=== PATIENT | female | born 1970 ===

== ENCOUNTER 2018-10-12 11:44 | Inpatient (IN) | payer SELFPAY ==
[2018-10-12 11:54] VITALS: BMI 40.0
--- NOTE | 2018-10-12 12:12 | ED PDOC ---
HPI: Chest Pain Time Seen by Provider: 10/12/18 11:59 Chief Complaint (Provider): chest pain History Per: [employer] (madai #[id number]) History/Exam Limitations: no limitations Onset/Duration Of Symptoms: Hrs (8), Sudden Onset Current Symptoms Are (Timing): Still Present Quality: Sharp Associated Symptoms: Nausea, Dyspnea Modifying Factors: None Exacerbating Factors: None Additional Complaint(s): 48yo female presents c/o chest pain central radiating to jaw associated with mild numbness to jaw, headache and one episode vomiting this morning. Denies weakness, change in speech or vision. Had one prior episode of similar pain about 8 years ago where she was told she had a panic attack but denies anxiety today. Past Medical History Vital Signs: Last Vital Signs Temp 98.4 F 10/12/18 11:53 Pulse 82 10/12/18 11:53 Resp 20 10/12/18 11:53 BP 133/79 10/12/18 11:53 Pulse Ox 98 10/12/18 11:53 - Medical History PMH: Diabetes (?), HTN (?) - Family History Family History: States: Unknown Family Hx - Social History Current smoker - smoking cessation education provided: No - Home Medications Home Medications: Ambulatory Orders Medication Instructions Recorded Turmeric Root Extract [Turmeric] 1 cap PO DAILY 10/12/18 - Allergies Allergies/Adverse Reactions: Allergies Allergy/AdvReac Type Severity Reaction Status Date / Time No Known Allergies Allergy Verified 10/12/18 12:09 - Laboratory Results Result Diagrams: 10/12/18 12:55 10/12/18 12:55 - ECG ECG: Positive for: Interpreted By Me ECG Rhythm: Positive for: Sinus Rhythm, ST/T Changes. Negative for: Normal ST Segment Interpretation Of Abn EKG: ST changes lat Rate: 78 O2 Sat by Pulse Oximetry: 98 Pulse Ox Interpretation: Normal - Critical Care Total Time (In Min): 40 Medical Decision Making Medical Decision Making: EKG reviewed with +lateral ST changed labs reviewed and troponin elevated 3.[address] Ibarra it applications analyst cardio rec starting heparin, ASA ordered and admitted to hospitalist/ clinic service for further testing. repeat EKG showed no progression of ST changes and patient pain free on re-eval Disposition - Clinical Impression Clinical Impression: NSTEMI (non-ST elevated myocardial infarction) - Patient ED Disposition Is Patient to be Admitted: Yes Counseled Patient/Family Regarding: Studies Performed, Diagnosis - Disposition Disposition Time: 13:30 Condition: FAIR - Pt Status Changed To: Hospital Disposition Of: Inpatient - Admit Certification Admit to Inpatient:: After my assessment, the patient will require hospitalization for at least two midnights. This is because of the severity of symptoms shown, intensity of services needed, and/or the medical risk in this patient being treated as an outpatient.
[2018-10-12 13:00] LABS: BASO # 0.1 K/uL (0.0-0.2); BASO % 0.6 % (0.0-2.0); EOS # 0.1 K/uL (0.0-0.7); HEMOGLOBIN 13.8 g/dL (12.0-16.0); LYMPH # 2.5 K/uL (1.0-4.3); LYMPH % 22.7 % (20.0-40.0); MEAN CELL VOLUME 83.8 fl (81.0-99.0); MEAN CORPUSCULAR HGB CONC 33.4 g/dL (33.0-37.0); MONO # 0.5 K/uL (0.0-0.8); MONO % 4.7 % (0.0-10.0); NEUT # 7.7 K/uL (1.8-7.0); NRBC % 0.4 % (0.0-0.0); RBC 4.91 Mil/uL (3.80-5.20); RED CELL DISTRIBUTION WIDTH 14.7 % (11.5-14.5); WHITE BLOOD COUNT 10.9 K/uL (4.8-10.8)
[2018-10-12 13:07] LABS: SQUAMOUS EPITHIAL 2 /hpf (0-5); URINE BACTERIA MANY (<OCC); URINE BILIRUBIN NEGATIVE (NEGATIVE); URINE BLOOD SMALL (NEGATIVE); URINE CLARITY SLIGHTY-CLOUDY (Clear); URINE COLOR STRAW (YELLOW); URINE GLUCOSE (UA) NEG (NEGATIVE); URINE LEUKOCYTE ESTERASE NEG Leu/uL (Negative); URINE PROTEIN NEGATIVE (NEGATIVE); URINE UROBILINOGEN 0.2-1.0 mg/dL (0.2-1.0)
[2018-10-12 13:09] LABS: INR 1.1; PROTHROMBIN TIME 12.3 Seconds (9.8-13.1)
[2018-10-12 13:12] LABS: PARTIAL THROMBOPLASTIN TIME 31.6 Seconds (25.6-37.1)
[2018-10-12 13:25] LABS: ALB/GLOB RATIO 1.3 (1.0-2.1); ALBUMIN 4.1 g/dL (3.5-5.0); ALT/SGPT 49 U/L (9-52); AST/SGOT 63 U/L (14-36); BLOOD UREA NITROGEN 9 mg/dl (7-17); CALCIUM 9.1 mg/dL (8.4-10.2); GFR NON-AFRICAN AMERICAN > 60
[2018-10-12 13:51] LABS: B-TYPE NATRIURETIC PEPTIDE 121 pg/ml (0-450)
[2018-10-12] MEDS ORDERED: Heparin 25,000units in D5W 25,000 UNITS/250 ML BAG IV SCH (14:15)
[2018-10-12] MEDS ORDERED: Nitroglycerin 2% 15 INCH/30 GM TUBE TOP STA (14:44)
--- NOTE | 2018-10-12 14:47 | CP.PCM.HP ---
<Roxanne Mata - Last Filed: 10/12/18 15:19> History of Present Illness - History of Present Illness History of Present Illness: 48-year-old female with PMH of prediabetes (HgA1C 6.0 09/24/18) presents to ED with crushing left-sided chest pain associated with numbness radiating to her jaw since 3am (8.5 hours prior to presentation). Pain is associated with headache, which has since resolved, and is currently aggravated with movement and alleviated with rest. 8 years ago she had a similar episode and was seen in the ED but discharged home with a diagnosis of anxiety/panic attack. She denies any current medical conditions besides increased liver enzymes (AST/ALT 63/49 today) and prediabetes (HgA1C 6.0 09/24/18) and takes no medications. She is a former smoker of 8 years but quit at age 21 (27 years ago). She is able to walk 8+ blocks without having to stop - if she does stop it is due to knee pain. She denies dyspnea at rest or during exercise, nausea, diaphoresis, change in vis ion, anxiety, syncope, shortness of breath, difficulty breathing, fever, recent illness, new-onset edema and chills. PMD: [facility], Dr. Mcclure -last seen [facility] 07/04/18 Meds: denies OBHx: [facility] 06/23/18 Surgical Hx: C/S + tubal ligation (2002), breast cyst biopsy (1999), pilonidal cyst removal during childhood FHx: M: HTN, DM, pacemaker; F: DM, COPD Social: EtOH social/occasional, denies illicit drugs, former smoker x8 years (quit 27 years ago) Allergies: NKDA Present on Admission - Present on Admission Any Indicators Present on Admission: No History of DVT/PE: No History of Uncontrolled Diabetes: No Review of Systems - Constitutional Constitutional: absent: Excessive Sweating, Fever, Night Sweats, Weakness - EENT Eyes: absent: Change in Vision Nose/Mouth/Throat: As Per HPI, Neck Pain - Cardiovascular Cardiovascular: As Per HPI, Chest Pain. absent: Diaphoresis, Leg Edema, Pedal Edema, Rapid Heart Rate, Slow Heart Rate - Respiratory Respiratory: absent: Dyspnea on Exertion - Gastrointestinal Gastrointestinal: As Per HPI, Vomiting. absent: Abdominal Pain - Genitourinary Genitourinary: absent: Dysuria - Psychiatric Psychiatric: absent: Anxiety Past Patient History - Past Social History Smoking Status: Former Smoker - PSYCHIATRIC Hx Substance Use: No Meds Allergies/Adverse Reactions: Allergies Allergy/AdvReac Type Severity Reaction Status Date / Time No Known Allergies Allergy Verified 10/12/18 12:09 Physical Exam - Head Exam Head Exam: NORMAL INSPECTION - Eye Exam Eye Exam: Normal appearance - ENT Exam ENT Exam: Mucous Membranes Moist - Respiratory Exam Respiratory Exam: Clear to Auscultation Bilateral, NORMAL BREATHING PATTERN. absent: Respiratory Distress - Cardiovascular Exam Cardiovascular Exam: REGULAR RHYTHM - GI/Abdominal Exam GI & Abdominal Exam: Soft. absent: Tenderness - Extremities Exam Extremities exam: Positive for: normal inspection. Negative for: calf ten derness, pedal edema, tenderness - Neurological Exam Neurological exam: Alert, Normal Gait, Oriented x3 - Psychiatric Exam Psychiatric exam: Normal Affect, Normal Mood - Skin Skin Exam: Dry, Intact, Normal Color, Warm Results - Vital Signs Recent Vital Signs: Last Vital Signs Temp 98 F 10/12/18 13:34 Pulse 77 10/12/18 13:34 Resp 18 10/12/18 13:34 BP 139/72 10/12/18 13:34 Pulse Ox 99 10/12/18 13:34 - Labs Result Diagrams: 10/12/18 12:55 10/12/18 12:55 Labs: Laboratory Results - last 24 hr 10/12/18 10/12/18 10/12/18 12:55 12:55 12:55 WBC 10.9 H RBC 4.91 Hgb 13.8 Hct 41.2 MCV 83.8 D MCH 28.0 MCHC 33.4 RDW 14.7 H Plt Count 282 MPV 8.0 Neut % (Auto) 71.0 Lymph % (Auto) 22.7 [place] % (Auto) 4.7 Eos % (Auto) 1.0 Baso % (Auto) 0.6 Neut # (Auto) 7.7 H Lymph # (Auto) 2.5 [place] # (Auto) 0.5 Eos # (Auto) 0.1 Baso # (Auto) 0.1 PT 12.3 INR 1.1 APTT 31.6 Sodium 138 Potassium 4.0 Chloride 98 Carbon Dioxide 26 Anion Gap 18 BUN 9 Creatinine 0.4 L Est GFR ( Amer) > 60 Est GFR (Non-Af Amer) > 60 Random Glucose 110 H Calcium 9.1 Total Bilirubin 0.3 AST 63 H D ALT 49 Alkaline Phosphatase 84 Troponin I 3.3800 H* NT-Pro-B Natriuret Pep 121 Total Protein 7.2 Albumin 4.1 Globulin 3.2 Albumin/Globulin Ratio 1.3 Urine Color Urine Clarity Urine pH Ur Specific [place] Urine Protein Urine Glucose (UA) Urine Ketones Urine Blood Urine Nitrate Urine Bilirubin Urine Urobilinogen Ur Leukocyte Esterase Urine RBC (Auto) Urine Microscopic WBC Ur Squamous Epith Cells Urine Bacteria 10/12/18 12:55 WBC RBC Hgb Hct MCV MCH MCHC RDW Plt Count MPV Neut % (Auto) Lymph % (Auto) [place] % (Auto) Eos % (Auto) Baso % (Auto) Neut # (Auto) Lymph # (Auto) [place] # (Auto) Eos # (Auto) Baso # (Auto) PT INR APTT Sodium Potassium Chloride Carbon Dioxide Anion Gap BUN Creatinine Est GFR ( Amer) Est GFR (Non-Af Amer) Random Glucose Calcium Total Bilirubin AST ALT Alkaline Phosphatase Troponin I NT-Pro-B Natriuret Pep Total Protein Albumin Globulin Albumin/Globulin Ratio Urine Color Straw Urine Clarity Slighty-cloudy Urine pH 7.0 Ur Specific [place] < 1.005 Urine Protein Negative Urine Glucose (UA) Neg Urine Ketones Negative Urine Blood Small Urine Nitrate Negative Urine Bilirubin Negative Urine Urobilinogen 0.2-1.0 Ur Leukocyte Esterase Neg Urine RBC (Auto) 1 Urine Microscopic WBC 1 Ur Squamous Epith Cells 2 Urine Bacteria Many H Assessment & Plan - Assessment and Plan (Free Text) Assessment: 48-year-old female with no pertinent PMH presents to ED with crushing left-sided chest pain associated with numbness radiating to her jaw admitted for NSTEMI. Plan: NSTEMI - Vitally stable - ASA 325 mg PO stat - Heparin 4,000 units // 25,000 units 250 ml @ 10 mls/hr - Lopressor 50mg Q12H - Nitropaste Q6H PRN - O2 2L PRN - Troponin 3.38, trend Q8H - Admit to telemetry - EKG: t wave changes in lateral leads - Follow-up ECHO - Cardiology consulted, recommendations appreciated DVT Prophylaxis - Hepain <Med Almazan D - Last Filed: 10/12/18 15:27> Results - Vital Signs Recent Vital Signs: Last Vital Signs Temp 98 F 10/12/18 13:34 Pulse 78 10/12/18 14:49 Resp 18 10/12/18 14:49 BP 139/72 10/12/18 14:49 Pulse Ox 100 10/12/18 14:49 - Labs Result Diagrams: 10/12/18 12:55 10/12/18 12:55 Labs: Laboratory Results - last 24 hr 10/12/18 10/12/18 10/12/18 12:55 12:55 12:55 WBC 10.9 H RBC 4.91 Hgb 13.8 Hct 41.2 MCV 83.8 D MCH 28.0 MCHC 33.4 RDW 14.7 H Plt Count 282 MPV 8.0 Neut % (Auto) 71.0 Lymph % (Auto) 22.7 [place] % (Auto) 4.7 Eos % (Auto) 1.0 Baso % (Auto) 0.6 Neut # (Auto) 7.7 H Lymph # (Auto) 2.5 [place] # (Auto) 0.5 Eos # (Auto) 0.1 Baso # (Auto) 0.1 PT 12.3 INR 1.1 APTT 31.6 Sodium 138 Potassium 4.0 Chloride 98 Carbon Dioxide 26 Anion Gap 18 BUN 9 Creatinine 0.4 L Est GFR ( Amer) > 60 Est GFR (Non-Af Amer) > 60 Random Glucose 110 H Calcium 9.1 Total Bilirubin 0.3 AST 63 H D ALT 49 Alkaline Phosphatase 84 Troponin I 3.3800 H* NT-Pro-B Natriuret Pep 121 Total Protein 7.2 Albumin 4.1 Globulin 3.2 Albumin/Globulin Ratio 1.3 Urine Color Urine Clarity Urine pH Ur Specific [place] Urine Protein Urine Glucose (UA) Urine Ketones Urine Blood Urine Nitrate Urine Bilirubin Urine Urobilinogen Ur Leukocyte Esterase Urine RBC (Auto) Urine Microscopic WBC Ur Squamous Epith Cells Urine Bacteria 10/12/18 12:55 WBC RBC Hgb Hct MCV MCH MCHC RDW Plt Count MPV Neut % (Auto) Lymph % (Auto) [place] % (Auto) Eos % (Auto) Baso % (Auto) Neut # (Auto) Lymph # (Auto) [place] # (Auto) Eos # (Auto) Baso # (Auto) PT INR APTT Sodium Potassium Chloride Carbon Dioxide Anion Gap BUN Creatinine Est GFR ( Amer) Est GFR (Non-Af Amer) Random Glucose Calcium Total Bilirubin AST ALT Alkaline Phosphatase Troponin I NT-Pro-B Natriuret Pep Total Protein Albumin Globulin Albumin/Globulin Ratio Urine Color Straw Urine Clarity Slighty-cloudy Urine pH 7.0 Ur Specific [place] < 1.005 Urine Protein Negative Urine Glucose (UA) Neg Urine Ketones Negative Urine Blood Small Urine Nitrate Negative Urine Bilirubin Negative Urine Urobilinogen 0.2-1.0 Ur Leukocyte Esterase Neg Urine RBC (Auto) 1 Urine Microscopic WBC 1 Ur Squamous Epith Cells 2 Urine Bacteria Many H Attending/Attestation - Attestation I have personally seen and examined this patient.: Yes I have fully participated in the care of the patient.: Yes I have reviewed all pertinent clinical information: Yes Notes (Text): 10/12/18 15:27 Patient seen and examined with resident. Case discussed and agreed with assessm ent and plan of management.
--- NOTE | 2018-10-12 16:13 | RAD ---
Date of service: 10/12/2018 HISTORY: Chest pain. COMPARISON: No prior. FINDINGS: LUNGS: No active pulmonary disease. PLEURA: No significant pleural effusion identified, no pneumothorax apparent. CARDIOVASCULAR: No atherosclerotic calcification present Normal. OSSEOUS STRUCTURES: No significant abnormalities. VISUALIZED UPPER ABDOMEN: Normal. OTHER FINDINGS: None. IMPRESSION: No active disease.
--- NOTE | 2018-10-12 18:41 | CARD ---
APPROVED REPORT Date of service: 10/12/2018 EKG Measurement Heart [id number] <Conclusion> Normal sinus rhythm Cannot rule out Inferior infarct, age undetermined T wave abnormality, consider lateral ischemia Abnormal ECG
--- NOTE | 2018-10-12 19:05 | CARD ---
APPROVED REPORT Date of service: 10/12/2018 EXAM: Two-dimensional and M-mode echocardiogram with Doppler and color Doppler. Other Information Quality : GoodRhythm : NSR INDICATION Non STEMI 2D DIMENSIONS IVSd1.27 (0.7-1.1cm)LVDd4.73 (3.9-5.9cm) LVOT Diameter2.11 (1.8-2.4cm)PWd1.11 (0.7-1.1cm) IVSs1.46 (0.8-1.2cm)LVDs3.21 (2.5-4.0cm) FS (%) 32.0 %PWs1.29 (0.8-1.2cm) M-Mode DIMENSIONS Left Atrium (MM)5.03 (2.5-4.0cm)IVSd1.00 (0.7-1.1cm) Aortic Root2.91 (2.2-3.7cm)LVDd6.09 (4.0-5.6cm) Aortic Cusp Exc.2.03 (1.5-2.0cm)PWd1.12 (0.7-1.1cm) IVSs1.47 cmFS (%) 47 % LVDs3.24 (2.0-3.8cm)PWs1.41 cm Aortic Valve AoV Peak Fzvmbvsx178.6cm/sAoV VTI28.6cmAO Peak GR.9mmHg LVOT Peak Iylbslex228.8cm/sLVOT VTI21.88cmAO Mean GR.5mmHg STEPHANIE (VMAX)1.66ui2GQX (VTI)1.35cm2 Mitral Valve MV E Epffjukj82.7cm/sMV DECEL [id number] A Iribojnx190.5cm/s MV OQN03woO/A ratio0.8MVA (PHT)2.98cm2 TDI Lateral E' Peak V7.33cm/sMedial E' Peak V6.27cm/sE/Lateral E'11.4 E/Medial E'13.3 LEFT VENTRICLE The left ventricle is normal size. There is normal left ventricular wall thickness. The left ventricular systolic function is normal. The estimated ejection fraction is 60-65% No regional wall motion abnormalities noted.. Transmitral Doppler flow pattern is Grade I-abnormal relaxation pattern. No left ventricle thrombus noted on this study. There is no ventricular septal defect visualized. There is no left ventricular aneurysm. There is no mass noted in the left ventricle. RIGHT VENTRICLE The right ventricle is normal size. There is normal right ventricular wall thickness. The right ventricular systolic function is normal. ATRIA The left atrium is mildly dilated. The right atrium size is normal. The interatrial septum is intact with no evidence for an atrial septal defect. AORTIC VALVE The aortic valve is normal in structure. No aortic regurgitation is present. There is no aortic valvular stenosis. There is no aortic valvular vegetation. MITRAL VALVE The mitral valve is normal in structure. There is no evidence of mitral valve prolapse. There is no mitral valve stenosis. There is trace to mild mitral valve regurgitation noted. TRICUSPID VALVE The tricuspid valve is normal in structure. There is no tricuspid valve regurgitation noted. There is no tricuspid valve prolapse or vegetation. There is no tricuspid valve stenosis. PULMONIC VALVE The pulmonary valve is normal in structure. There is no pulmonic valvular regurgitation. There is no pulmonic valvular stenosis. GREAT VESSELS The aortic root is normal in size. The ascending aorta is normal in size. The pulmonary artery is normal. The IVC is normal in size and collapses >50% with inspiration. PERICARDIAL EFFUSION There is no pericardial effusion. There is no pleural effusion. <Conclusion> The estimated ejection fraction is 60-65% Transmitral Doppler flow pattern is Grade I-abnormal relaxation pattern. The left atrium is mildly dilated. There is trace to mild mitral valve regurgitation noted.
--- NOTE | 2018-10-12 22:12 | CP.PCM.CON ---
History of Present Illness - History of Present Illness History of Present Illness: asked to see pt for nstemi 48 y/o with sudden severe left sided and substernal cp x 1 episode yesterday. pain described as heaviness in chest with sob, palp, n and vomit. pain was nonradiating, no LH or dizziness. pain came on while watching tv. Additional complaints of bl bhumi yesterday prior to admission. pt called ems. initial ekg showed biphasic t waves in lateral leads. tele shows sr at 80 bpm with pvcs. Pt states that she has had minor bouts of chest pressure throughout day and is currently having one. she states they are a 2-3/10 and the initial was a 10/10. pt has not alerted physicians and or nurses to the mild cp during day. Review of Systems - Constitutional Constitutional: As Per HPI. absent: Anorexia, Chills, Daytime Sleepiness, Excessive Sweating, Fatigue, Fever, Frequent Falls, Headache, Increased Appetite, Lethargy, Malaise, Night Sweats, Snoring, Sleep Apnea, Weight Gain, Weight Loss, Weakness, Other - EENT Eyes: As Per HPI. absent: Blind Spots, Blurred Vision, Change in Vision, D ecreased Night Vision, Diplopia, Discharge, Dry Eye, Exophthalmos, Floaters, Irritation, Itchy Eyes, Loss of Peripheral Vision, Pain, Photophobia, Requires Corrective Lenses, Sees Flashes, Spots in Vision, Tunnel Vision, Other Visual Disturbances, Loss of Vision, Other Ears: As Per HPI. absent: Decreased Hearing, Ear Discharge, Ear Pain, Tinnitus, Abnormal Hearing, Disequilibrium, Dizziness, Other Nose/Mouth/Throat: As Per HPI. absent: Epistaxis, Nasal Congestion, Nasal Discharge, Nasal Obstruction, Nasal Trauma, Nose Pain, Post Nasal Drip, Sinus Pain, Sinus Pressure, Bleeding Gums, Change in Voice, Dental Pain, Dry Mouth, Dysphagia, Halitosis, Hoarsness, Lip Swelling, Mouth Lesions, Mouth Pain, Odynophagia, Sore Throat, Throat Swelling, Tongue Swelling, Facial Pain, Neck Pain, Neck Mass, Other - Breasts Breasts: As Per HPI. absent: Change in Shape, Mass, Pain, Nipple Discharge, Nipple Inversion, Skin Changes, Swelling, Other - Cardiovascular Cardiovascular: Chest Pain at Rest, Diaphoresis, Dyspnea, Leg Edema, Palpitations. absent: As Per HPI, Acrocyanosis, Chest Pain, Chest Pain with Activity, Claudication, Dyspnea on Exertion, Edema, Irregular Heart Rhythm, Pain Radiating to Arm/Neck/Jaw, Leg Ulcers, Lightheadedness, Orthopnea, Paroxysmal Nocturnal Dyspnea, Pedal Edema, Radiating Pain, Rapid Heart Rate, Slow Heart Rate, Syncope, Other - Respiratory Respiratory: As Per HPI. absent: Cough, Dyspnea, Hemoptysis, Dyspnea on Exertion, Wheezing, Snoring, Stridor, Pain on Inspiration, Chest Congestion, Excessive Mucous Production, Change in Mucous Color, Pain with Coughing, Other - Gastrointestinal Gastrointestinal: As Per HPI, Nausea, Vomiting. absent: Abdominal Pain, Belching, Bloating, Change in Bowel Habits, Change in Stool Character, Coffee Ground Emesis, Constipation, Cramping, Diarrhea, Dyspepsia, Dysphagia, Early Satiety, Excessive Flatus, Fecal Incontinence, Heartburn, Hematemesis, Hematochezia, Loose Stools, Melena, Odynophagia, Temesmus, Other - Genitourinary Genitourinary: As Per HPI. absent: Change in Urinary Stream, Difficulty Urinating, Dysuria, Flank Pain, Hematuria, Pyuria, Nocturia, Urinary Incontin ence, Urinary Frequency, Urinary Hesitance, Urinary Urgency, Voiding Freq/Small Amts, Freq UTI, Hx Renal/Bladder Calculi, Hx /Renal Surgery, Bladder Distension, Other - Reproductive: Female Reproductive:Female: As Per HPI. absent: Amenorrhea, Amenorrhea/ Control, Currently Menstual, Cycle <21 Days, Cycle >35 Days, Cycle Variable, Menses 1-7 Days, Menses >/= 8 Days, Menses Variable, Cycle > 4 Weeks Between, No Menses for 6 Months, Heavy Menses, Light Menses, Normal Menses, Spotting Between Cycles, S/P Hysterectomy, Menopausal, Post Menopausal, Premenarche, Abnormal Vaginal Bleeding, Dysmenorrhea, Dyspareunia, Genital Lesions, Genital Pruritis, Pelvic Pain, Prolapse Symptoms, Sexual Dysfunction, Vaginal Discharge, Vaginal Dryness, Vaginal Odor, Vaginal Pruritis, Other - Menstruation Menstruation: As Per HPI. absent: Amenorrhea, Amenorrhea/ Control, Currently Menstual, Cycle <21 Days, Cycle >35 Days, Cycle Variable, Menses 1-7 Days, Menses >/= 8 Days, Menses Variable, Cycle > 4 Weeks Between, No Menses for 6 Months, Heavy Menses, Light Menses, Normal Menses, Spotting Between Cycles, S/P Hysterectomy, Menopausal, Post Menopausal, Premenarche, Abnormal Vaginal Bleeding, Dysmenorrhea, Other - Musculoskeletal Musculoskeletal: As Per HPI. absent: Abnormal Gait, Arthralgias, Atrophy, Back Pain, Deformity, Joint Swelling, Limited Range of Motion, Loss of Height, Muscle Cramps, Muscle Weakness, Myalgias, Neck Pain, Numbness, Radiating Pain into Limb, Stiffness, Tingling, Other - Integumentary Integumentary: As Per HPI. absent: Acne, Alopecia, Bleeding Lesions, Change in Hair, Change in Nails, Change in Pigmentation, Changing Lesions, Dry Skin, Erythema, Furuncle, Hirsutism, Lesions, New Lesions, Non-Healing Lesions, Photosensitivity, Pruritus, Rash, Skin Pain, Skin Ulcer, Sores, Striae, Swelling, Unusual Bruising, Wounds, Jaundice, Other - Neurological Neurological: As Per HPI. absent: Abnormal Gait, Abnormal Hearing, Abnormal Movements, Abnormal Speech, Behavioral Changes, Burning Sensations, Confusion, Convulsions, Disequilibrium, Dizziness, Numbness, Focal Weakness, Frequent Falls, Headaches, Lack of Coordination, Loss of Vision, Memory Loss, Paresthesias, Radicular Pain, Restless Legs, Sensory Deficit, Syncope, Tingling, Tremor, Vertigo, Weakness, Other Visual Disturbances, Other - Psychiatric Psychiatric: As Per HPI. absent: Abnormal Sleep Pattern, Anhedonia, Anxiety, Auditory Hallucinations, Behavioral Changes, Change in Appetite, Change in Libido, Confusion, Depression, Difficulty Concentrating, Hallucinations, Homicidal Ideation, Hopelessness, Irritability, Memory Loss, Mood Swings, Panic Attacks, Paranoia, Suicidal Ideation, Visual Hallucinations, Tactile Hallucinations, Other - Endocrine Endocrine: As Per HPI. absent: Change in Body Appearance, Change in Libido, Cold Intolorance, Deepening of Voice, Excessive Sweating, Fatigue, Flushing, Heat Intolorance, Increase in Ring/Shoe/Hat Size, Palpitations, Polydipsia, Polyphagia, Polyuria, Other - Hematologic/Lymphatic Hematologic: As Per HPI. absent: Easy Bleeding, Easy Bruising, Lymphadenopathy, Other Past Patient History - Past Medical History & Family History Past Medical History?: Yes - Past Social History Smoking Status: Never Smoked Chewing Tobacco Use: No Cigar Use: No Alcohol: None Drugs: Denies Home Situation {Lives}: With Family Domestic Violence: Negative - CARDIAC Hx Cardiac Disorders: No Hx Hypertension: (?) - PULMONARY Hx Respiratory Disorders: No - NEUROLOGICAL Hx Neurological Disorder: No - HEENT Hx HEENT Problems: No - RENAL Hx Chronic Kidney Disease: No - ENDOCRINE/METABOLIC Hx Endocrine Disorders: No - HEMATOLOGICAL/ONCOLOGICAL Hx Blood Disorders: No - INTEGUMENTARY Hx Dermatological Problems: No - MUSCULOSKELETAL/RHEUMATOLOGICAL Hx Musculoskeletal Disorders: No Hx Falls: No - GASTROINTESTINAL Hx Gastrointestinal Disorders: No - GENITOURINARY/GYNECOLOGICAL Hx Genitourinary Disorders: No - PSYCHIATRIC Hx Psychophysiologic Disorder: No Hx Substance Use: No - SURGICAL HISTORY Hx Surgeries: Yes Hx Section: Yes Hx Tubal Ligation: Yes Other/Comment: cyst removal in left breast and lower back - ANESTHESIA Hx Anesthesia: Yes Hx Anesthesia Reactions: No Hx Malignant Hyperthermia: No Has any member of the family had a problem w/ anesthesia?: No Meds Allergies/Adverse Reactions: Allergies Allergy/AdvReac Type Severity Reaction Status Date / Time No Known Allergies Allergy Verified 10/12/18 12:09 - Medications Medications: Current Medications Aspirin (Aspirin) 325 mg PO DAILY [facility] Atorvastatin Calcium (Lipitor) 80 mg PO HS [facility] Heparin Sodium/Dextrose (Heparin 25,000 Units/250ml In D5w) 25,000 units in 250 mls @ 10 mls/hr IV .Q24H [facility]; Protocol Last Admin: 10/12/18 14:49 Dose: 10 mls/hr Metoprolol Tartrate (Lopressor) 50 mg PO Q8 [facility] Nitroglycerin (Nitro-Bid 2% Oint) 1 ea TOP Q6H [facility] Physical Exam - Constitutional Appears: Non-toxic - Head Exam Head Exam: ATRAUMATIC, NORMAL INSPECTION, NORMOCEPHALIC - Eye Exam Eye Exam: EOMI, Normal appearance, PERRL. absent: Conjunctival injection, Nystagmus, Periorbital swelling, Periorbital tenderness, Scleral icterus Pupil Exam: NORMAL ACCOMODATION, PERRL. absent: Fixed, Irregular, Miosis, Mydriatic, Unequal - ENT Exam ENT Exam: Mucous Membranes Moist, Normal Exam. absent: Mucous Membranes Dry, Normal External Ear Exam, Normal Oropharynx, TM's Normal Bilaterally - Neck Exam Neck exam: Positive for: Normal Inspection. Negative for: Full Rom, Lymphadenopathy, Meningismus, Tenderness, Thyromegaly - Respiratory Exam Respiratory Exam: Clear to Auscultation Bilateral, NORMAL BREATHING PATTERN. absent: Accessory Muscle Use, Chest Wall Tenderness, Decreased Breath Sounds, Prolonged Expiratory Phase, Rales, Rhonchi, Wheezes, Respiratory Distress, Stridor - Cardiovascular Exam Cardiovascular Exam: REGULAR RHYTHM, +S1, +S2, Systolic Murmur. absent: Bradycardia, Tachycardia, Clicks, Diastolic murmur, Gallop, Irregular Rhythm, JVD, RRR, Rubs, +S4 - GI/Abdominal Exam GI & Abdominal Exam: Normal Bowel Sounds, Soft. absent: Bruit, Diminished Bowel Sounds, Distended, Firm, Guarding, Hernia, Hyperactive Bowel Sounds, Hypoactive Bowel Sounds, Mass, Organomegaly, Pulsatile Mass, Rebound, Rigid, Tenderness - Rectal Exam Rectal Exam: Deferred - Extremities Exam Extremities exam: Positive for: normal inspection. Negative for: calf tenderness, full ROM, joint swelling, normal capillary refill, pedal edema, tenderness, pedal pulses present - Back Exam Back exam: NORMAL INSPECTION. absent: CVA tenderness (L), CVA tenderness (R), FULL ROM, muscle spasm, paraspinal tenderness, rash noted, tenderness, vertebral tenderness - Neurological Exam Neurological exam: Alert, CN II-XII Intact, Normal Gait, Oriented x3, Reflexes Normal - Psychiatric Exam Psychiatric exam: Normal Affect, Normal Mood - Skin Skin Exam: Dry, Intact, Normal Color, Warm Results - Vital Signs Recent Vital Signs: Last Vital Signs Temp 98.5 F 10/12/18 20:11 Pulse 72 10/12/18 20:49 Resp 18 10/12/18 20:49 BP 136/75 10/12/18 20:11 Pulse Ox 97 10/12/18 20:11 - Labs Result Diagrams: 10/12/18 12:55 10/12/18 12:55 Labs: Laboratory Results - last 24 hr 10/12/18 10/12/18 10/12/18 12:55 12:55 12:55 WBC 10.9 H RBC 4.91 Hgb 13.8 Hct 41.2 MCV 83.8 D MCH 28.0 MCHC 33.4 RDW 14.7 H Plt Count 282 MPV 8.0 Neut % (Auto) 71.0 Lymph % (Auto) 22.7 [place] % (Auto) 4.7 Eos % (Auto) 1.0 Baso % (Auto) 0.6 Neut # (Auto) 7.7 H Lymph # (Auto) 2.5 [place] # (Auto) 0.5 Eos # (Auto) 0.1 Baso # (Auto) 0.1 PT 12.3 INR 1.1 APTT 31.6 Sodium 138 Potassium 4.0 Chloride 98 Carbon Dioxide 26 Anion Gap 18 BUN 9 Creatinine 0.4 L Est GFR ( Amer) > 60 Est GFR (Non-Af Amer) > 60 Random Glucose 110 H Calcium 9.1 Total Bilirubin 0.3 AST 63 H D ALT 49 Alkaline Phosphatase 84 Troponin I 3.3800 H* NT-Pro-B Natriuret Pep 121 Total Protein 7.2 Albumin 4.1 Globulin 3.2 Albumin/Globulin Ratio 1.3 Urine Color Urine Clarity Urine pH Ur Specific [place] Urine Protein Urine Glucose (UA) Urine Ketones Urine Blood Urine Nitrate Urine Bilirubin Urine Urobilinogen Ur Leukocyte Esterase Urine RBC (Auto) Urine Microscopic WBC Ur Squamous Epith Cells Urine Bacteria 10/12/18 10/12/18 12:55 20:51 WBC RBC Hgb Hct MCV MCH MCHC RDW Plt Count MPV Neut % (Auto) Lymph % (Auto) [place] % (Auto) Eos % (Auto) Baso % (Auto) Neut # (Auto) Lymph # (Auto) [place] # (Auto) Eos # (Auto) Baso # (Auto) PT INR APTT 42.0 H Sodium Potassium Chloride Carbon Dioxide Anion Gap BUN Creatinine Est GFR ( Amer) Est GFR (Non-Af Amer) Random Glucose Calcium Total Bilirubin AST ALT Alkaline Phosphatase Troponin I NT-Pro-B Natriuret Pep Total Protein Albumin Globulin Albumin/Globulin Ratio Urine Color Straw Urine Clarity Slighty-cloudy Urine pH 7.0 Ur Specific [place] < 1.005 Urine Protein Negative Urine Glucose (UA) Neg Urine Ketones Negative Urine Blood Small Urine Nitrate Negative Urine Bilirubin Negative Urine Urobilinogen 0.2-1.0 Ur Leukocyte Esterase Neg Urine RBC (Auto) 1 Urine Microscopic WBC 1 Ur Squamous Epith Cells 2 Urine Bacteria Many H Assessment & Plan (1) NSTEMI (non-ST elevated myocardial infarction) Status: Acute Comment: asa 325 daily 1st dose now ordered. increased metoprolol to q8 hrs hr is 80 on monitor with pvcs. check lytes. continue heparin. sl ntg x 1 now as pt having cp currently. cath tomorrow afternoon (time tbd). npo post breakfast. monitor troponins. repeat ekg. i instructed pt to alert staff with any recurring cp. (2) Dyslipidemia Status: Acute (3) Fam hx-ischem heart disease Status: Acute (4) PVC (premature ventricular contraction) Status: Acute (5) Edema, lower extremity Status: Acute - Assessment and Plan (Free Text) Plan: i discussed cardiac cath with pt and immediate family at length. spent over 25 min explaining procedure and answering their questions. discussed risks benefits alternatives and reasoning for cardiac cath. pt and family are agreeable. 45 min total care time.
[2018-10-12] MEDS: Nitroglycerin 2% Ointment Foilpak UD TOP SCH ×2 (22:51→22:52)
[2018-10-13] MEDS: Nitroglycerin 2% Ointment Foilpak UD TOP SCH ×4 (03:06→21:36)
[2018-10-13 05:55] LABS: BASO % 0.3 % (0.0-2.0); EOS # 0.1 K/uL (0.0-0.7); EOS % 1.3 % (0.0-4.0); HEMOGLOBIN 13.1 g/dL (12.0-16.0); LYMPH # 2.2 K/uL (1.0-4.3); LYMPH % 18.5 % (20.0-40.0); MEAN CELL VOLUME 82.2 fl (81.0-99.0); MEAN CORPUSCULAR HEMOGLOBIN 27.7 pg (27.0-31.0); MEAN CORPUSCULAR HGB CONC 33.6 g/dL (33.0-37.0); MEAN PLATELET VOLUME 8.2 fl (7.2-11.7); MONO # 0.6 K/uL (0.0-0.8); MONO % 5.5 % (0.0-10.0); NEUT # 8.7 K/uL (1.8-7.0); NEUT % 74.4 % (50.0-75.0); NRBC % 0.1 % (0.0-0.0); RBC 4.72 Mil/uL (3.80-5.20); WHITE BLOOD COUNT 11.6 K/uL (4.8-10.8)
[2018-10-13 05:57] LABS: INR 1.1; PROTHROMBIN TIME 12.4 Seconds (9.8-13.1)
[2018-10-13 06:17] LABS: ALB/GLOB RATIO 1.3 (1.0-2.1); ALBUMIN 3.9 g/dL (3.5-5.0); ALT/SGPT 59 U/L (9-52); AST/SGOT 72 U/L (14-36); BLOOD UREA NITROGEN 13 mg/dl (7-17); CALCIUM 8.8 mg/dL (8.4-10.2); GFR NON-AFRICAN AMERICAN > 60
--- NOTE | 2018-10-13 06:42 | CARD ---
APPROVED REPORT Date of service: 10/12/2018 EKG Measurement Heart [id number] <Conclusion> Normal sinus rhythm Cannot rule out Inferior infarct, age undetermined T wave abnormality, consider anterolateral ischemia Abnormal ECG
--- NOTE | 2018-10-13 10:14 | CP.PCM.PN ---
<Roxanne Mata - Last Filed: 10/13/18 10:37> Subjective - Date & Time of Evaluation Date of Evaluation: 10/13/18 Time of Evaluation: 09:55 - Subjective Subjective: 48-year-old female seen bedside on day 1 of admission for STEMI. She complains of headache but denies current chest pain and difficulty breathing. Overnight she had chest pain relieved with nitroglycerin but notes improvement in the pain (no longer exacerbated with movement). Plan for cardiac cath later this afternoon discussed, patient demonstrates verbal understanding. Diet NPO. Objective - Vital Signs/Intake and Output Vital Signs (last 24 hours): Temp Pulse Resp BP Pulse Ox 98.4 F 70 20 106/67 97 10/13/18 08:25 10/13/18 10:05 10/13/18 08:25 10/13/18 10:05 10/13/18 08:25 Intake and Output: 10/13/18 10/13/18 06:59 18:59 Intake Total 0 Balance 0 - Medications Medications: Current Medications Aspirin (Aspirin) 325 mg PO DAILY [facility] Last Admin: 10/13/18 10:05 Dose: 325 mg Atorvastatin Calcium (Lipitor) 80 mg PO HS [facility] Last Admin: 10/12/18 22:36 Dose: 80 mg Heparin Sodium/Dextrose (Heparin 25,000 Units/250ml In D5w) 25,000 units in 250 mls @ 10 mls/hr IV .Q24H [facility]; Protocol Last Titration: 10/13/18 06:35 Dose: 14 mls/hr Metoprolol Tartrate (Lopressor) 50 mg PO Q8@0300,1100,1900 [facility] Last Admin: 10/13/18 10:05 Dose: 50 mg Nitroglycerin (Nitro-Bid 2% Oint) 1 ea TOP Q6H [facility] Last Admin: 10/13/18 10:05 Dose: 1 ea - Labs Labs: 10/13/18 04:10 10/13/18 04:10 PT 12.4 Seconds (9.8-13.1) 10/13/18 04:10 INR 1.1 10/13/18 04:10 APTT 46.0 Seconds (25.6-37.1) H 10/13/18 04:10 - Constitutional Appears: Non-toxic, No Acute Distress - Head Exam Head Exam: NORMAL INSPECTION - Eye Exam Eye Exam: Normal appearance - ENT Exam ENT Exam: Mucous Membranes Moist - Neck Exam Neck Exam: Full ROM - Respiratory Exam Respiratory Exam: NORMAL BREATHING PATTERN - Cardiovascular Exam Cardiovascular Exam: REGULAR RHYTHM, +S1, +S2 - GI/Abdominal Exam GI & Abdominal Exam: Soft. absent: Tenderness - Neurological Exam Neurological Exam: Alert, Awake, Normal Gait, Oriented x3 - Psychiatric Exam Psychiatric exam: Normal Affect, Normal Mood - Skin Skin Exam: Dry, Intact, Normal Color, Warm Assessment and Plan - Assessment and Plan (Free Text) Assessment: 48-year-old female with no pertinent PMH presents to ED with crushing left-sided chest pain associated with numbness radiating to her jaw admitted for NSTEMI. Plan: NSTEMI - Vitally stable - ASA 325 mg PO - Heparin 4,000 units once - Heparin 25,000 units 250 ml @ 10 mls/hr - Lopressor 50mg Q8H - Lipitor 80mg PO HS - Nitropaste Q6H PRN - O2 2L PRN - Troponin x3: 3.38 (12:55 10/12), 9.0 (21:45 10/12), 5.6 (4:10 10/13) - EKG (10/12/18): t wave changes in lateral leads - Follow-up ECHO - As per cardiology (Dr Ibarra 10/12/18): ASA 325 daily 1st dose now ordered. increased metoprolol to q8 hrs hr is 80 on monitor with pvcs. check lytes. continue heparin. sl ntg x 1 now as pt having cp currently. cath tomorrow afternoon (time tbd). npo post breakfast. monitor troponins. repeat ekg. i instructed pt to alert staff with any recurring cp. - Plan for cardiac cath today DVT Prophylaxis - Hepain <Almazan,Med D - Last Filed: 10/13/18 13:12> Objective - Vital Signs/Intake and Output Vital Signs (last 24 hours): Temp Pulse Resp BP Pulse Ox 98.4 F 70 20 106/67 97 10/13/18 08:25 10/13/18 10:05 10/13/18 08:25 10/13/18 10:05 10/13/18 08:25 Intake and Output: 10/13/18 10/13/18 06:59 18:59 Intake Total 0 Balance 0 - Medications Medications: Current Medications Aspirin (Aspirin) 325 mg PO DAILY [facility] Last Admin: 10/13/18 10:05 Dose: 325 mg Atorvastatin Calcium (Lipitor) 80 mg PO HS [facility] Last Admin: 10/12/18 22:36 Dose: 80 mg Heparin Sodium/Dextrose (Heparin 25,000 Units/250ml In D5w) 25,000 units in 250 mls @ 10 mls/hr IV .Q24H [facility]; Protocol Last Titration: 10/13/18 06:35 Dose: 14 mls/hr Metoprolol Tartrate (Lopressor) 50 mg PO Q8@0300,1100,1900 [facility] Last Admin: 10/13/18 10:05 Dose: 50 mg Nitroglycerin (Nitro-Bid 2% Oint) 1 ea TOP Q6H [facility] Last Admin: 10/13/18 10:05 Dose: 1 ea - Labs Labs: 10/13/18 04:10 10/13/18 04:10 PT 12.4 Seconds (9.8-13.1) 10/13/18 04:10 INR 1.1 10/13/18 04:10 APTT 46.0 Seconds (25.6-37.1) H 10/13/18 04:10 Attending/Attestation - Attestation I have personally seen and examined this patient.: Yes I have fully participated in the care of the patient.: Yes I have reviewed all pertinent clinical information, including history, physical exam and plan: Yes Notes (Text): 10/13/18 13:11 Patient seen and examined with resident. Case discussed and agreed with assessment and plan
--- NOTE | 2018-10-13 16:00 | CP.PCM.PN ---
Subjective - Date & Time of Evaluation Date of Evaluation: 10/13/18 Time of Evaluation: 15:58 - Subjective Subjective: cath performed. 80% distal lad (small 1mm caliber) stenosis. no complications of complaints. Objective - Vital Signs/Intake and Output Vital Signs (last 24 hours): Temp Pulse Resp BP Pulse Ox 98.4 F 70 20 106/67 97 10/13/18 08:25 10/13/18 10:05 10/13/18 08:25 10/13/18 10:05 10/13/18 08:25 Intake and Output: 10/13/18 10/13/18 06:59 18:59 Intake Total 0 Balance 0 - Medications Medications: Current Medications Aspirin (Aspirin) 325 mg PO DAILY [facility] Last Admin: 10/13/18 10:05 Dose: 325 mg Atorvastatin Calcium (Lipitor) 80 mg PO HS [facility] Last Admin: 10/12/18 22:36 Dose: 80 mg Heparin Sodium/Dextrose (Heparin 25,000 Units/250ml In D5w) 25,000 units in 250 mls @ 10 mls/hr IV .Q24H [facility]; Protocol Last Titration: 10/13/18 06:35 Dose: 14 mls/hr Metoprolol Tartrate (Lopressor) 50 mg PO Q8@0300,1100,1900 [facility] Last Admin: 10/13/18 10:05 Dose: 50 mg Nitroglycerin (Nitro-Bid 2% Oint) 1 ea TOP Q6H [facility] Last Admin: 10/13/18 10:05 Dose: 1 ea - Labs Labs: 10/13/18 04:10 10/13/18 04:10 PT 12.4 Seconds (9.8-13.1) 10/13/18 04:10 INR 1.1 10/13/18 04:10 APTT 46.0 Seconds (25.6-37.1) H 10/13/18 04:10 - Constitutional Appears: Well - Head Exam Head Exam: ATRAUMATIC, NORMAL INSPECTION, NORMOCEPHALIC - Eye Exam Eye Exam: EOMI, Normal appearance, PERRL Pupil Exam: NORMAL ACCOMODATION, PERRL - ENT Exam ENT Exam: Mucous Membranes Moist, Normal Exam - Neck Exam Neck Exam: Full ROM, Normal Inspection. absent: Lymphadenopathy - Respiratory Exam Respiratory Exam: Clear to Ausculation Bilateral, NORMAL BREATHING PATTERN - Cardiovascular Exam Cardiovascular Exam: REGULAR RHYTHM, +S1, +S2, Murmur - GI/Abdominal Exam GI & Abdominal Exam: Soft, Normal Bowel Sounds. absent: Bruit, Distended, Firm, Guarding, Rigid, Tenderness, Diminished Bowel Sounds, Hernia, Hyperactive Bowel Sounds, Hypoactive Bowel Sounds, Organomegaly, Pulsatile Mass, Rebound, Mass - Extremities Exam Extremities Exam: Full ROM, Normal Capillary Refill, Normal Inspection. absent: Joint Swelling, Pedal Edema - Back Exam Back Exam: NORMAL INSPECTION - Neurological Exam Neurological Exam: Alert, Awake, CN II-XII Intact, Normal Gait, Oriented x3 - Psychiatric Exam Psychiatric exam: Normal Affect, Normal Mood - Skin Skin Exam: Dry, Intact, Normal Color, Warm Assessment and Plan (1) NSTEMI (non-ST elevated myocardial infarction) Status: Acute (2) Dyslipidemia Status: Acute (3) Fam hx-ischem heart disease Status: Acute (4) PVC (premature ventricular contraction) Status: Acute (5) Edema, lower extremity Status: Acute - Assessment and Plan (Free Text) Plan: medical management. asa, bb's, acei if bp can tolerate.
[2018-10-14] MEDS: Nitroglycerin 2% Ointment Foilpak UD TOP SCH (03:20)
[2018-10-14 05:49] LABS: HEMOGLOBIN 13.2 g/dL (12.0-16.0); MEAN CELL VOLUME 82.8 fl (81.0-99.0); MEAN CORPUSCULAR HEMOGLOBIN 28.2 pg (27.0-31.0); MEAN CORPUSCULAR HGB CONC 34.1 g/dL (33.0-37.0); RBC 4.66 Mil/uL (3.80-5.20); RED CELL DISTRIBUTION WIDTH 14.4 % (11.5-14.5); WHITE BLOOD COUNT 9.9 K/uL (4.8-10.8)
[2018-10-14 06:02] LABS: ALB/GLOB RATIO 1.3 (1.0-2.1); ALT/SGPT 40 U/L (9-52); AST/SGOT 36 U/L (14-36); BLOOD UREA NITROGEN 16 mg/dl (7-17); CALCIUM 8.8 mg/dL (8.4-10.2); GFR NON-AFRICAN AMERICAN > 60
[2018-10-14 07:56] VITALS: TEMP 98.2; O2SAT 96
[2018-10-14 08:30] LABS: HDL CHOLESTEROL 35 MG/DL (30-70)
[2018-10-14 08:46] LABS: LDL CHOLESTEROL 100 mg/dL (0-129)
[2018-10-14] MEDS ORDERED: Enoxaparin 40 mg Syringe SC SCH (09:00)
--- NOTE | 2018-10-14 10:26 | CP.PCM.DIS ---
<Roxanne Mata - Last Filed: 10/14/18 14:30> Provider - Provider Date of Admission: 10/12/18 13:56 Attending physician: Med Almazan MD Consults: 10/12/18 14:42 Cardiology Consult Stat Comment: Consulting Provider: Samantha Ibarra Consulting Physician: Samantha Ibarra Reason for Consult: NSTEMI Time Spent in preparation of Discharge (in minutes): 25 Diagnosis - Discharge Diagnosis (1) NSTEMI (non-ST elevated myocardial infarction) Status: Acute Hospital Course - Lab Results Lab Results: Most Recent Lab Values WBC 9.9 K/uL (4.8-10.8) 10/14/18 04:25 RBC 4.66 Mil/uL (3.80-5.20) 10/14/18 04:25 Hgb 13.2 g/dL (12.0-16.0) 10/14/18 04:25 Hct 38.6 % (34.0-47.0) 10/14/18 04:25 MCV 82.8 fl (81.0-99.0) 10/14/18 04:25 MCH 28.2 pg (27.0-31.0) 10/14/18 04:25 MCHC 34.1 g/dL (33.0-37.0) 10/14/18 04:25 RDW 14.4 % (11.5-14.5) 10/14/18 04:25 Plt Count 263 K/uL (130-400) 10/14/18 04:25 MPV 8.2 fl (7.2-11.7) 10/13/18 04:10 Neut % (Auto) 74.4 % (50.0-75.0) 10/13/18 04:10 Lymph % (Auto) 18.5 % (20.0-40.0) L 10/13/18 04:10 [place] % (Auto) 5.5 % (0.0-10.0) 10/13/18 04:10 Eos % (Auto) 1.3 % (0.0-4.0) 10/13/18 04:10 Baso % (Auto) 0.3 % (0.0-2.0) 10/13/18 04:10 Neut # (Auto) 8.7 K/uL (1.8-7.0) H 10/13/18 04:10 Lymph # (Auto) 2.2 K/uL (1.0-4.3) 10/13/18 04:10 [place] # (Auto) 0.6 K/uL (0.0-0.8) 10/13/18 04:10 Eos # (Auto) 0.1 K/uL (0.0-0.7) 10/13/18 04:10 Baso # (Auto) 0.0 K/uL (0.0-0.2) 10/13/18 04:10 PT 12.4 Seconds (9.8-13.1) 10/13/18 04:10 INR 1.1 10/13/18 04:10 APTT 46.0 Seconds (25.6-37.1) H 10/13/18 04:10 Sodium 134 mmol/l (132-148) 10/14/18 04:25 Potassium 3.7 MMOL/L (3.6-5.0) 10/14/18 04:25 Chloride 100 mmol/L (98-107) 10/14/18 04:25 Carbon Dioxide 28 mmol/L (22-30) 10/14/18 04:25 Anion Gap 10 (10-20) 10/14/18 04:25 BUN 16 mg/dl (7-17) 10/14/18 04:25 Creatinine 0.5 mg/dl (0.7-1.2) L 10/14/18 04:25 Est GFR ( Amer) > 60 10/14/18 04:25 Est GFR (Non-Af Amer) > 60 10/14/18 04:25 Random Glucose 104 mg/dL (65-105) 10/14/18 04:25 Calcium 8.8 mg/dL (8.4-10.2) 10/14/18 04:25 Magnesium 2.3 MG/DL (1.6-2.3) 10/13/18 04:10 Total Bilirubin 0.4 mg/dl (0.2-1.3) 10/14/18 04:25 AST 36 U/L (14-36) D 10/14/18 04:25 ALT 40 U/L (9-52) 10/14/18 04:25 Alkaline Phosphatase 79 U/L (38-126) 10/14/18 04:25 Troponin I 4.0500 ng/mL (0.00-0.120) H* 10/13/18 09:54 NT-Pro-B Natriuret Pep 121 pg/ml (0-450) 10/12/18 12:55 Total Protein 7.0 G/DL (6.3-8.2) 10/14/18 04:25 Albumin 4.0 g/dL (3.5-5.0) 10/14/18 04:25 Globulin 3.0 gm/dL (2.2-3.9) 10/14/18 04:25 Albumin/Globulin Ratio 1.3 (1.0-2.1) 10/14/18 04:25 Triglycerides 117 mg/DL (0-149) D 10/14/18 08:05 Cholesterol 140 mg/dL (0-199) 10/14/18 08:05 LDL Cholesterol Direct 100 mg/dL (0-129) 10/14/18 08:05 HDL Cholesterol 35 MG/DL (30-70) 10/14/18 08:05 Urine Color Straw (YELLOW) 10/12/18 12:55 Urine Clarity Slighty-cloudy (Clear) 10/12/18 12:55 Urine pH 7.0 (5.0-8.0) 10/12/18 12:55 Ur Specific A[place] < 1.005 (1.003-1.030) 10/12/18 12:55 Urine Protein Negative mg/dL (NEGATIVE) 10/12/18 12:55 Urine Glucose (UA) Neg mg/dL (NEGATIVE) 10/12/18 12:55 Urine Ketones Negative mg/dL (NEGATIVE) 10/12/18 12:55 Urine Blood Small (NEGATIVE) 10/12/18 12:55 Urine Nitrate Negative (NEGATIVE) 10/12/18 12:55 Urine Bilirubin Negative (NEGATIVE) 10/12/18 12:55 Urine Urobilinogen 0.2-1.0 mg/dL (0.2-1.0) 10/12/18 12:55 Ur Leukocyte Esterase Neg Todd/uL (Negative) 10/12/18 12:55 Urine RBC (Auto) 1 /hpf (0-3) 10/12/18 12:55 Urine Microscopic WBC 1 /hpf (0-5) 10/12/18 12:55 Ur Squamous Epith Cells 2 /hpf (0-5) 10/12/18 12:55 Urine Bacteria Many (<OCC) H 10/12/18 12:55 - Hospital Course Hospital Course: 48-year-old female with no pertinent PMH presents to ED with crushing left-sided chest pain associated with numbness radiating to her jaw admitted for NSTEMI. Admission EKG showed t-wave changes in lateral leads, Troponin x3: 3.38 (12:55 10/12), 9.0 (21:45 10/12), 5.6 (4:10 10/13). Patient was treated with - ASA 325 mg PO, Heparin 4,000 units once, Heparin 25,000 units 250 ml @ 10 mls/hr, Lopressor 50mg Q8H, Lipitor 80mg PO HS, Nitropaste Q6H PRN, O2 2L PRN. She remained vitally stable throughout admission. She was transferred to [facility] [place] for cardiac catheter where an 80% block of LAD was noted but no stent placement was indicated at this time. Cardiology, Dr Ibarra followed patient throughout admission. Patient vitally stable, medically cleared for discharge to home on medications listed below with recomendatiosn to follow-up at [facility] at 11am. Discharge Exam - Head Exam Head Exam: ATRAUMATIC, NORMAL INSPECTION, NORMOCEPHALIC - Eye Exam Eye Exam: Normal appearance - ENT Exam ENT Exam: Mucous Membranes Moist - Respiratory Exam Respiratory Exam: NORMAL BREATHING PATTERN, UNREMARKABLE. absent: Respiratory Distress - Cardiovascular Exam Cardiovascular Exam: REGULAR RHYTHM - GI/Abdominal Exam GI & Abdominal Exam: Soft. absent: Tenderness - Extremities Exam Extremities exam: normal inspection Additional comments: right groin healing well - Back Exam Back exam: absent: CVA tenderness (L), CVA tenderness (R) - Neurological Exam Neurological exam: Alert, Normal Gait, Oriented x3 - Psychiatric Exam Psychiatric exam: Normal Affect, Normal Mood - Skin Skin Exam: Dry, Intact, Normal Color, Warm Discharge Plan - Discharge Medications Prescriptions: RX: Aspirin [Adult Aspirin Regimen] 81 mg PO DAILY #30 tablet. RX: Atorvastatin [Lipitor] 40 mg PO HS #30 tab RX: Lisinopril [Zestril] 2.5 mg PO DAILY #30 tab RX: Metoprolol Tartrate [Lopressor] 25 mg PO Q12 #60 tab - Follow Up Plan Condition: FAIR Disposition: HOME/ ROUTINE Instructions: Cardiac Catheterization (DC), Heart Attack (DC), High Cholesterol (DC) Additional Instructions: Follow-up WednesdayOctober 17 at 10:00 am at the [facility] with Dr Ruffin. Referrals: [facility] [place] [Outside] Clinic,Med Surg [Non-Staff] - Samantha Ibarra MD [Staff Provider] - <Med Almazan - Last Filed: 10/14/18 18:15> Provider - Provider Date of Admission: 10/12/18 13:56 Attending physician: Med Almazan MD Consults: 10/12/18 14:42 Cardiology Consult Stat Comment: Consulting Provider: Samantha Ibarra Consulting Physician: Samantha Ibarra Reason for Consult: [facility] Hospital Course - Lab Results Lab Results: Most Recent Lab Values WBC 9.9 K/uL (4.8-10.8) 10/14/18 04:25 RBC 4.66 Mil/uL (3.80-5.20) 10/14/18 04:25 Hgb 13.2 g/dL (12.0-16.0) 10/14/18 04:25 Hct 38.6 % (34.0-47.0) 10/14/18 04:25 MCV 82.8 fl (81.0-99.0) 10/14/18 04:25 MCH 28.2 pg (27.0-31.0) 10/14/18 04:25 MCHC 34.1 g/dL (33.0-37.0) 10/14/18 04:25 RDW 14.4 % (11.5-14.5) 10/14/18 04:25 Plt Count 263 K/uL (130-400) 10/14/18 04:25 MPV 8.2 fl (7.2-11.7) 10/13/18 04:10 Neut % (Auto) 74.4 % (50.0-75.0) 10/13/18 04:10 Lymph % (Auto) 18.5 % (20.0-40.0) L 10/13/18 04:10 [place] % (Auto) 5.5 % (0.0-10.0) 10/13/18 04:10 Eos % (Auto) 1.3 % (0.0-4.0) 10/13/18 04:10 Baso % (Auto) 0.3 % (0.0-2.0) 10/13/18 04:10 Neut # (Auto) 8.7 K/uL (1.8-7.0) H 10/13/18 04:10 Lymph # (Auto) 2.2 K/uL (1.0-4.3) 10/13/18 04:10 [place] # (Auto) 0.6 K/uL (0.0-0.8) 10/13/18 04:10 Eos # (Auto) 0.1 K/uL (0.0-0.7) 10/13/18 04:10 Baso # (Auto) 0.0 K/uL (0.0-0.2) 10/13/18 04:10 PT 12.4 Seconds (9.8-13.1) 10/13/18 04:10 INR 1.1 10/13/18 04:10 APTT 46.0 Seconds (25.6-37.1) H 10/13/18 04:10 Sodium 134 mmol/l (132-148) 10/14/18 04:25 Potassium 3.7 MMOL/L (3.6-5.0) 10/14/18 04:25 Chloride 100 mmol/L (98-107) 10/14/18 04:25 Carbon Dioxide 28 mmol/L (22-30) 10/14/18 04:25 Anion Gap 10 (10-20) 10/14/18 04:25 BUN 16 mg/dl (7-17) 10/14/18 04:25 Creatinine 0.5 mg/dl (0.7-1.2) L 10/14/18 04:25 Est GFR ( Amer) > 60 10/14/18 04:25 Est GFR (Non-Af Amer) > 60 10/14/18 04:25 Random Glucose 104 mg/dL (65-105) 10/14/18 04:25 Calcium 8.8 mg/dL (8.4-10.2) 10/14/18 04:25 Magnesium 2.3 MG/DL (1.6-2.3) 10/13/18 04:10 Total Bilirubin 0.4 mg/dl (0.2-1.3) 10/14/18 04:25 AST 36 U/L (14-36) D 10/14/18 04:25 ALT 40 U/L (9-52) 10/14/18 04:25 Alkaline Phosphatase 79 U/L (38-126) 10/14/18 04:25 Troponin I 4.0500 ng/mL (0.00-0.120) H* 10/13/18 09:54 NT-Pro-B Natriuret Pep 121 pg/ml (0-450) 10/12/18 12:55 Total Protein 7.0 G/DL (6.3-8.2) 10/14/18 04:25 Albumin 4.0 g/dL (3.5-5.0) 10/14/18 04:25 Globulin 3.0 gm/dL (2.2-3.9) 10/14/18 04:25 Albumin/Globulin Ratio 1.3 (1.0-2.1) 10/14/18 04:25 Triglycerides 117 mg/DL (0-149) D 10/14/18 08:05 Cholesterol 140 mg/dL (0-199) 10/14/18 08:05 LDL Cholesterol Direct 100 mg/dL (0-129) 10/14/18 08:05 HDL Cholesterol 35 MG/DL (30-70) 10/14/18 08:05 Urine Color Straw (YELLOW) 10/12/18 12:55 Urine Clarity Slighty-cloudy (Clear) 10/12/18 12:55 Urine pH 7.0 (5.0-8.0) 10/12/18 12:55 Ur Specific A[place] < 1.005 (1.003-1.030) 10/12/18 12:55 Urine Protein Negative mg/dL (NEGATIVE) 10/12/18 12:55 Urine Glucose (UA) Neg mg/dL (NEGATIVE) 10/12/18 12:55 Urine Ketones Negative mg/dL (NEGATIVE) 10/12/18 12:55 Urine Blood Small (NEGATIVE) 10/12/18 12:55 Urine Nitrate Negative (NEGATIVE) 10/12/18 12:55 Urine Bilirubin Negative (NEGATIVE) 10/12/18 12:55 Urine Urobilinogen 0.2-1.0 mg/dL (0.2-1.0) 10/12/18 12:55 Ur Leukocyte Esterase Neg Todd/uL (Negative) 10/12/18 12:55 Urine RBC (Auto) 1 /hpf (0-3) 10/12/18 12:55 Urine Microscopic WBC 1 /hpf (0-5) 10/12/18 12:55 Ur Squamous Epith Cells 2 /hpf (0-5) 10/12/18 12:55 Urine Bacteria Many (<OCC) H 10/12/18 12:55 Attending/Attestation - Attestation I have personally seen and examined this patient.: Yes I have fully participated in the care of the patient.: Yes I have reviewed all pertinent clinical information, including history, physical exam and plan: Yes Notes (Text): 10/14/18 18:15 Patient seen and examined with resident. Case discussed and agreed with assessment
[2018-10-14 11:54] VITALS: BP 107/63; PULSE 68; RESP 18
== END 2018-10-14 13:30 | disposition home or self-care (01) | DRG 190 ==
LOC: H.ER 11:44 → H.ERHOLD 13:56 → H.TEL 19:10
PROC: 4A023N7 Measurement of Cardiac Sampling and Pressure, Left Heart, Percutaneous Approach (ICD-10-PCS; principal; 2018-10-13)
PROC: B206YZZ Plain Radiography of Right and Left Heart using Other Contrast (ICD-10-PCS; 2018-10-13)
DX: I21.4 Non-ST elevation (NSTEMI) myocardial infarction (principal); E78.5 Hyperlipidemia, unspecified; I49.3 Ventricular premature depolarization; F41.0 Panic disorder [episodic paroxysmal anxiety]; R73.03 Prediabetes; Z87.891 Personal history of nicotine dependence; Z82.49 Family history of ischemic heart disease and other diseases of the circulatory system